=== PATIENT | female | born 1965 | race Caucasian/White ===

== ENCOUNTER 2017-06-26 14:23 | Emergency (ER) | payer SELFPAY ==
[~2017-06-26 14:23] MED LIST: SULF1TAB47 PO; Z.0.NO CURRENT MEDS
[2017-06-26 14:26] VITALS: BP 138/91; PULSE 98; RESP 16; TEMP 99; O2SAT 96
--- NOTE | 2017-06-26 15:16 | RADRPT ---
EXAM DATE/TIME: 06/26/2017 14:52 [place] COMPARISON: No previous studies available for comparison. INDICATIONS : Cough. MEDICAL HISTORY : bronchitis, sinusitis SURGICAL HISTORY : None. ENCOUNTER: Initial ACUITY: >1 year PAIN SCORE: Non-responsive. LOCATION: Bilateral chest FINDINGS: There are COPD changes. The heart is normal in size. The lungs are clear. Visualized bony structures are grossly intact. CONCLUSION: 1. COPD changes. No acute abnormality is identified. Bronson Torres MD on June 26, 2017 at 15:14 Board Certified Radiologist. This report was verified electronically.
[2017-06-26] MEDS ORDERED: PRED20 PO (15:56)
[2017-06-26] MEDS ORDERED: AZIT250T3 PO (15:56)
[2017-06-26] MEDS ORDERED: ALBUAER3 INH (15:56)
--- NOTE | 2017-06-26 16:21 | PD ---
HPI Chief Complaint: Cold / Flu Symptoms Time Seen by Provider: 15:49 Travel History International Travel<30 days: No Contact w/Intl Traveler<30days: No Traveled to known affect area: No History of Present Illness HPI 52-year-old female presents for evaluation of cough and congestion. Symptoms started 1 week ago. Symptoms are mild, no aggravating leaving factors. Denies any fevers or chills. Recently traveled here from [place]. No other complaints. [facility] Social History Tobacco Use: Yes Allergies-Medications (Allergen,Severity, Reaction): Coded Allergies: No Known Allergies (Unverified , 12/23/12) Reported Meds & Prescriptions Reported Meds & Active Scripts Active Azithromycin 250 Mg Tab 250 Mg PO DIRECTED Take 2 tabs (500 mg) on day 1 then 1 tab daily x 4 days. Prednisone 20 Mg Tab 20 Mg PO BID 5 Days Proair Hfa 8.5 GM Inh (Albuterol Sulfate) 90 Mcg/Act Aer 2 Puff INH Q4-6H PRN 108 mcg/actuation Review of Systems Except as stated in HPI: all other systems reviewed are Neg Physical Exam Narrative GENERAL: Well-nourished female in no acute distress SKIN: Warm and dry. HEAD: Atraumatic. Normocephalic. EYES: Pupils equal and round. No scleral icterus. No injection or drainage. ENT: No nasal bleeding or discharge. Mucous membranes pink and moist. NECK: Trachea midline. No JVD. CARDIOVASCULAR: Regular rate and rhythm. No murmur appreciated. RESPIRATORY: No accessory muscle use. Clear to auscultation. Breath sounds equal bilaterally. Diffuse mild wheezing. Data Data Last Documented VS Vital Signs Date Time Temp Pulse Resp B/P (MAP) Pulse Ox O2 Delivery O2 Flow Rate FiO2 06/26/17 14:26 99.0 98 16 138/91 (107) 96 Room Air Orders Orders Chest, Pa & Lat (06/26/17 ) MDM Medical Decision Making Medical Screen Exam Complete: Yes Emergency Medical Condition: Yes Medical Record Reviewed: Yes Differential Diagnosis Asthma exacerbation, sinusitis, bronchitis, pneumonia, COPD exacerbation Narrative Course Chest x-ray obtained triage reveals no evidence of pneumonia but it is suspicious for COPD. The patient does have wheezing. She will be discharged with azithromycin, prednisone, pro-air prescriptions. Diagnosis Primary Impression: Bronchitis Additional Instructions: Medication as prescribed. Avoid tobacco products. Return for any emergent medical conditions. Med/Other Pt SpecificInfo: Prescription(s) given Scripts Azithromycin (Azithromycin) 250 Mg Tab 250 MG PO DIRECTED for Infection, #6 TAB 0 Refills Take 2 tabs (500 mg) on day 1 then 1 tab daily x 4 days. Prov: Tom Bello MD 06/26/17 Prednisone (Prednisone) 20 Mg Tab 20 MG PO BID for 5 Days, #10 TAB 0 Refills Prov: Tom Bello MD 06/26/17 Albuterol 8.5 GM Inh (Proair Hfa 8.5 GM Inh) 90 Mcg/Act Aer 2 PUFF INH Q4-6H Y for SHORTNESS OF BREATH, #1 INHALER 0 Refills 108 mcg/actuation Prov: Tom Bello MD 06/26/17 Disposition: 01 DISCHARGE HOME Condition: Stable Emil Hand Jun 26, 2017 16:21
== END 2017-06-26 17:56 | disposition home or self-care (01) ==
LOC: NEPK 14:23
DX: J40 Bronchitis, not specified as acute or chronic (principal); Z72.0 Tobacco use
CPT/HCPCS: 71046; 99283